=== PATIENT | female | born 1975 | race Caucasian/White ===

== ENCOUNTER 2020-08-17 17:30 | Emergency (ER) | payer OTHER, SELFPAY ==
[2020-08-17 17:41] VITALS: BP 150/98; PULSE 101; RESP 18; TEMP 36.7; O2SAT 100
--- NOTE | 2020-08-17 17:58 | ED.ABDPAIN ---
HPI - Abdominal Pain General Chief Complaint: Urogenital-Female Stated Complaint: uti Source: patient Mode of arrival: ambulatory Limitations: no limitations History of Present Illness HPI narrative: Patient is a 45-year-old female who presents complaining of urinary frequency, urgency and dysuria starting this afternoon. Patient also reports hematuria. She reports mild abdominal cramping, denies flank pain or back pain. Patient denies history of UTI. MD elicited complaint: other (urinary frequency, urgency and dysuria) Pertinent past history: none Related Data Allergies Allergy/AdvReac Type Severity Reaction Status Date / Time sulfamethizole Allergy Unknown chills, Verified 08/17/20 17:48 liorkey trimethoprim Allergy Unknown chills, Verified 08/17/20 17:48 vanessa Review of Systems Review of Systems: Narrative: CONSTITUTIONAL: Denies fever, chills, or sweats. EYES: Denies visual changes, redness, or discharge. ENT: Denies rhinorrhea, congestion, sore throat, or otalgia. CARDIOVASCULAR: Denies chest pain, palpitations, or edema. RESPIRATORY: Denies cough or dyspnea. GASTROINTESTINAL: Denies abdominal pain, nausea, vomiting, or diarrhea. GENITOURINARY: Reports dysuria, hematuria, frequency and urgency SKIN: Denies rash or itching. MUSCULOSKELETAL: Denies back pain, joint pain, or myalgia. NEUROLOGIC: Denies headache, numbness, dizziness, or weakness. PSYCHIATRIC: Denies anxiety or depression. [facility] Past Medical History Medical History Wellness examination Family History Family History Mother Diabetes mellitus Hypertension Family history of coronary artery disease Social History Social History Smoking status: Never smoker Alcohol intake: current Exam Narrative: Exam Narrative: GENERAL: Well-appearing, well-nourished, and in no acute distress. HEAD: Normocephalic, atraumatic. EYES: No redness or drainage. Conjunctiva are normal. ENT: Mucous membranes pink and moist. . CHEST: No respiratory distress. Clear to auscultation. HEART: Regular rate and rhythm. No murmur appreciated. Normal peripheral pulses. GI: Soft, nontender without rebound, or guarding. No distention. Bowel sounds normal in all quadrants. NEURO: No focal deficits. Alert and oriented x3. Gait steady. PSYCH: Normal affect. No signs of depression or anxiety. Course Vital Signs Vital signs: Vital Signs Temperature 36.7 C 08/17/20 17:41 Pulse Rate 101 H 08/17/20 17:41 Respiratory Rate 18 08/17/20 17:41 Blood Pressure 150/98 H 08/17/20 17:41 Pulse Oximetry 100 08/17/20 17:41 Temperature 36.7 C 08/17/20 17:41 Pulse Rate 101 H 08/17/20 17:41 Respiratory Rate 18 08/17/20 17:41 Blood Pressure 150/98 H 08/17/20 17:41 Pulse Oximetry 100 08/17/20 17:41 Reviewed. Patient has been instructed to follow-up with her PCP regarding her blood pressure. MDM - Abdominal Pain MDM Narrative Medical decision making narrative: Patient UA shows 3+ blood, nitrates negative, culture to be sent. Patient to be treated for UTI because of presenting symptoms, Pyridium also to be given. Patient instructed to follow-up with PCP in 1 week. Patient aware that if symptoms increase or she develops back or flank pain, she needs to be seen in the emergency department. Patient is stable for discharge home with outpatient follow-up as needed. Differential Diagnosis Differential diagnosis: Likely calculus of kidney and other (UTI) Lab Data Labs: Urine Glucose Negative Reference Range: Negative Urine Bilirubin 1+ Reference Range: Negative Urine Ketone Negative Reference Range: Negative Urine Specific [place] 1.015 Reference Range:1.001-1.035 Urine
== END 2020-08-17 18:16 | disposition home or self-care (01) ==
PROVIDERS: Emergency Provider Nurse Practitioner; PCP Family Medicine
DX: N30.01 Acute cystitis with hematuria (principal)
CPT/HCPCS: 81003; 87086; 99213; G0463

== ENCOUNTER 2025-01-24 16:46 | Outpatient (CLI) | payer OTHER, SELFPAY ==
[2025-01-24 17:43] LABS: Influenza A QL RT-PCR Positive (Negative); Influenza B QL RT-PCR Negative (Negative); RSV RNA, RT-PCR Negative (Negative); SARS-CoV-2 RNA PCR Negative (Negative)
== END 2025-01-24 16:47 | disposition home or self-care (01) ==
LOC: ANHLAB 16:49
PROVIDERS: PCP Family Medicine; Visit Provider Family Medicine
DX: R05.9 Cough, unspecified (principal)
CPT/HCPCS: 87637